=== PATIENT | female | born 1960 | race Caucasian/White ===

== ENCOUNTER 2020-07-21 18:40 | Emergency (ER) | payer OTHER ==
[~2020-07-21 18:40] MED LIST: CERTAGEN1 EACH PO; CYMBALTA20 MG PO; FEOSOL325 MG PO; HCTZ25 MG PO; IBUPROFEN800 MG PO; LIPITOR20 MG PO; METFORMIN HCL500 M3 PO; NORCO 5-325 TA1 EACH PO; PERCOCET 5-3251 EACH PO; PREDNISONE 20MG20 MG PO; SINGULAIR10 MG PO; TAMIFLU 75MG CA75 MG PO; VENTOLIN HFA IN18 GM INH; VITAMIN D31 ML PO; VOLTAREN **OUT50 MG PO; WELLBUTRIN XL300 MG PO
[2020-09-16] MEDS ORDERED: VITAMIN D325 MC1 PO (14:27)
[2020-09-16] MEDS ORDERED: INDERAL20 MG PO (14:27)
[2020-09-16] MEDS ORDERED: IBUPROFEN400 M1 PO (14:28)
[2020-09-16] MEDS ORDERED: FLUOROURACIL TOP (14:52)
[2020-09-23] MEDS ORDERED: NORCO 5-325 TA1 EACH PO (09:31)
== END 2020-07-21 20:35 | disposition home or self-care (01) ==
LOC: FER 18:40
DX: M17.11 Unilateral primary osteoarthritis, right knee (principal); F17.200 Nicotine dependence, unspecified, uncomplicated
CPT/HCPCS: 73564

== ENCOUNTER 2020-09-03 10:52 | Emergency (ER) | payer OTHER ==
[2020-09-03] MEDS ORDERED: ULTRA-LIGHT RO1 EACH XX (12:31)
[2020-09-03] MEDS ORDERED: HYDROCODON-ACE1 EAC2 PO (12:32)
[2020-09-16] MEDS ORDERED: INDERAL20 MG PO (14:27)
[2020-09-16] MEDS ORDERED: VITAMIN D325 MC1 PO (14:27)
[2020-09-16] MEDS ORDERED: IBUPROFEN400 M1 PO (14:28)
[2020-09-16] MEDS ORDERED: FLUOROURACIL TOP (14:52)
[2020-09-23] MEDS ORDERED: NORCO 5-325 TA1 EACH PO (09:31)
== END 2020-09-03 12:48 | disposition home or self-care (01) ==
LOC: FER 10:52
DX: S92.512A Displaced fracture of proximal phalanx of left lesser toe(s), initial encounter for closed fracture (principal); M79.672 Pain in left foot; W01.0XXA Fall on same level from slipping, tripping and stumbling without subsequent striking against object, initial encounter; Y92.009 Unspecified place in unspecified non-institutional (private) residence as the place of occurrence of the external cause; Z85.820 Personal history of malignant melanoma of skin
CPT/HCPCS: 73610; 73630

== ENCOUNTER → 2020-09-23 | Day surgery (SDC) | payer OTHER ==
[~2020-09-23] MED LIST changes: +FLUOROURACIL TOP; +HYDROCODON-ACE1 EAC2 PO; +IBUPROFEN400 M1 PO; +INDERAL20 MG PO; +ULTRA-LIGHT RO1 EACH XX; +VITAMIN D325 MC1 PO
[2020-09-23 07:11] LABS: HCT 41.6 % (37.0-47.0); HGB 13.4 g/dl (12.5-16.0); MCHC 32.2 g/dL (32.0-36.0); MPV 11.5 fL (6.0-9.5); RBC 4.62 M/uL (4.20-5.40); RDW 14.4 % (11.5-14.0); WBC 11.6 K/uL (4.0-10.5)
== END | disposition home or self-care (01) ==
LOC: FAS 05:56
PROVIDERS: Legal Medicine
DX: S83.241A Other tear of medial meniscus, current injury, right knee, initial encounter (principal); M22.41 Chondromalacia patellae, right knee; E78.5 Hyperlipidemia, unspecified; F17.210 Nicotine dependence, cigarettes, uncomplicated; R25.1 Tremor, unspecified; Z79.899 Other long term (current) drug therapy
CPT/HCPCS: 36415; 93005; J0690; J1100; J1170; J1885; J2250; J2274; J2405; J2704; J3010; J7040; J7120

== ENCOUNTER 2021-02-17 03:45 | Emergency (ER) | payer OTHER ==
[~2021-02-17 03:45] MED LIST changes: +NEURONTIN300 MG PO
[2021-02-17 05:27] LABS: BASOPHIL 0.6 % (0-2); HGB 13.2 g/dl (12.5-16.0); LYMPHOCYTE 25.6 % (15-48); MCH 29.7 pg (25.0-31.0); MCV 89.9 fL (78.0-100.0); MONOCYTE 9.1 % (0-12); MPV 11.3 fL (6.0-9.5); NEUTROPHIL 60.4 % (41-80); NRBC 0; PLT 274 K/uL (150-400); RBC 4.45 M/uL (4.20-5.40); RDW 14.1 % (11.5-14.0); WBC 13.1 K/uL (4.0-10.5)
[2021-02-17 05:46] LABS: C-REACTIVE PROTEIN 0.5 mg/dL (<=0.90); CREATININE 0.84 mg/dL (0.51-0.95); POTASSIUM 3.5 mmol/L (3.5-5.1)
[2021-02-17] MEDS ORDERED: BACTROBAN NASAL1 GM (08:22)
[2021-02-17] MEDS ORDERED: VIBRAMYCIN100 MG PO (08:22)
[2021-02-17] MEDS ORDERED: NORCO 5-325 TA1 EACH PO (08:22)
[2021-02-17] MEDS ORDERED: MEDROL 4MG DOSEP4 MG PO (08:22)
[2021-02-19] MEDS ORDERED: OXYCODONE-ACET1 EAC1 PO (17:37)
[2021-03-28] MEDS ORDERED: HCTZ12.5 MG PO (14:01)
[2021-04-07] MEDS ORDERED: OXY-IR 5MG5 MG PO (12:55)
[2021-04-07] MEDS ORDERED: ACETAMINOPHEN500 M1 PO (12:55)
[2021-04-07] MEDS ORDERED: COLACE100 MG PO (12:55)
[2021-04-07] MEDS ORDERED: MOTRIN600 MG PO (12:55)
[2021-04-16] MEDS ORDERED: OXYCODONE-ACET1 EAC1 PO (17:42)
== END 2021-02-17 08:54 | disposition home or self-care (01) ==
LOC: FER 03:45
PROVIDERS: Emergency Medicine Emergency Medical Services
DX: M54.16 Radiculopathy, lumbar region (principal); L02.31 Cutaneous abscess of buttock; E78.5 Hyperlipidemia, unspecified; Z90.710 Acquired absence of both cervix and uterus; F17.210 Nicotine dependence, cigarettes, uncomplicated
CPT/HCPCS: 36415; 80048; 85025; 86140; 86787; J1100; J1170; J1885; J2405

== ENCOUNTER → 2021-04-07 | Day surgery (SDC) | payer OTHER ==
[~2021-04-07] VITALS: Ht 170.2 cm; Wt 100.7 kg
[~2021-04-07] MED LIST changes: +ACETAMINOPHEN500 M1 PO; +BACTROBAN NASAL1 GM; +COLACE100 MG PO; +HCTZ12.5 MG PO; +MEDROL 4MG DOSEP4 MG PO; +MOTRIN600 MG PO; +OXY-IR 5MG5 MG PO; +OXYCODONE-ACET1 EAC1 PO; +VIBRAMYCIN100 MG PO
== END | disposition home or self-care (01) ==
LOC: FAS 10:28
DX: N63.15 Unspecified lump in the right breast, overlapping quadrants (principal); M79.89 Other specified soft tissue disorders; M19.90 Unspecified osteoarthritis, unspecified site; J44.9 Chronic obstructive pulmonary disease, unspecified; F41.8 Other specified anxiety disorders; E78.00 Pure hypercholesterolemia, unspecified; E78.5 Hyperlipidemia, unspecified; F17.210 Nicotine dependence, cigarettes, uncomplicated; E66.9 Obesity, unspecified; Z68.34 Body mass index [BMI] 34.0-34.9, adult; Z79.899 Other long term (current) drug therapy; Z90.710 Acquired absence of both cervix and uterus; Z80.3 Family history of malignant neoplasm of breast; Z82.49 Family history of ischemic heart disease and other diseases of the circulatory system; Z79.1 Long term (current) use of non-steroidal anti-inflammatories (NSAID)
CPT/HCPCS: 93005; J0690; J1170; J1644; J2250; J2704; J3010; J7120